=== PATIENT | female | born 1960 | race African-American/Black ===

== ENCOUNTER 2017-08-21 09:12 | Day surgery (SDC) | payer OTHER ==
[~2017-08-21 09:12] MED LIST: DEXAMETHASONE SOD PHOS 20 MG/5 ML VIAL.; HYDROmorphone 2 MG/ML VIAL IV; LIDOCAINE 1% PF 2 ML VIAL. ID; LIDOCAINE 1% PF 5 ML VIAL.; MIDAZOLAM HCL/PF 2 MG/2 ML VIAL.; MORPHINE SULFATE 2 MG/ML DISP.SYRIN. IV; ONDANSETRON PF 4 MG/2 ML VIAL.; ONDANSETRON PF 4 MG/2 ML VIAL. IV; PROCHLORPERAZINE 10 MG/2 ML VIAL. IV; PROPOFOL 20 ML IV; ROCURONIUM 50 MG/5 ML VIAL.; SUCCINYLCHOLINE 200 MG/10 ML VIAL.; fentaNYL PF VIAL 100 MCG/2 ML VIAL; fentaNYL PF VIAL 100 MCG/2 ML VIAL IV
[2017-08-21] MEDS: IV RINGERS,LACTATED 1000ML 1,000 ML IV (09:45)
[2017-08-21] MEDS ORDERED: ePHEDrine PF IN SALINE 50 MG/5 ML DISP.SYRIN IV (10:37)
[2017-08-21] MEDS: BUPIVACAINE MPF 0.5% 30 ML VIAL. (10:58)
[2017-08-21] MEDS ORDERED: fentaNYL PF VIAL 100 MCG/2 ML VIAL (11:43)
[2017-08-21] MEDS: fentaNYL PF VIAL 100 MCG/2 ML VIAL IV ×2 (12:03→12:27)
[2017-08-21] MEDS: oxyCODONE/APAP 5/325 1 TAB TABLET PO (12:42)
== END 2017-08-21 13:29 | disposition home or self-care (01) ==
LOC: SURG 09:12
DX: S83.241A Other tear of medial meniscus, current injury, right knee, initial encounter (principal); X58.XXXA Exposure to other specified factors, initial encounter; Y93.89 Activity, other specified; Y92.89 Other specified places as the place of occurrence of the external cause; Y99.8 Other external cause status; M22.41 Chondromalacia patellae, right knee; M19.90 Unspecified osteoarthritis, unspecified site; E66.9 Obesity, unspecified; Z68.41 Body mass index [BMI] 40.0-44.9, adult; Z87.39 Personal history of other diseases of the musculoskeletal system and connective tissue; Z88.8 Allergy status to other drugs, medicaments and biological substances; Z88.6 Allergy status to analgesic agent; Z91.040 Latex allergy status
CPT/HCPCS: 29881; J0330; J0690; J1100; J2250; J2405; J2704; J3010; J3490